=== PATIENT | female | born 1990 | race Hispanic/Latino ===

== ENCOUNTER 2018-02-10 23:21 | Outpatient (CLI) | payer MEDICAID ==
[2018-02-10] MEDS ORDERED: LACTATED RINGERS 1,000 ML IV ONE (23:50)
[2018-02-11 00:06] VITALS: BP 115/76
[2018-02-11 00:47] LABS: Bilirubin,Urine NEG (Negative); Blood,Urine NEG (Negative); Color,Urine Yellow (Yellow); Mucus,Urine FEW /HPF; Protein,Urine <15 mg/dL mg/dL (Negative); Urobilinogen,Urine < 2.0 mg/dL (<2.0)
[2018-02-11] MEDS: BRETHINE SUB-Q SCH ×3 (01:10→02:28)
== END 2018-02-11 03:30 | disposition home or self-care (01) ==
LOC: TRG 23:21
PROVIDERS: ATTEND Obstetrics & Gynecology
DX: O62.9 Abnormality of forces of labor, unspecified (principal); Z87.891 Personal history of nicotine dependence; Z3A.34 34 weeks gestation of pregnancy
CPT/HCPCS: 59025; 81001; 96360; 96369; 96370; J3105; J7120

== ENCOUNTER 2018-03-01 02:01 | Outpatient (CLI) | payer MEDICAID ==
[2018-03-01 02:16] VITALS: BP 110/55
[2018-03-01] MEDS ORDERED: VISTARIL PO PRN (06:18)
== END 2018-03-01 06:55 | disposition home or self-care (01) ==
LOC: TRG 02:01 → LD 02:06 → TRG 06:55
DX: O47.03 False labor before 37 completed weeks of gestation, third trimester (principal); Z3A.36 36 weeks gestation of pregnancy
CPT/HCPCS: 59025

== ENCOUNTER 2018-03-05 22:56 | Inpatient (IN) | payer MEDICAID ==
[2018-03-05] MEDS ORDERED: STADOL IV PRN (23:43)
[2018-03-05] MEDS ORDERED: BRETHINE IVP PRN (23:43)
[2018-03-05] MEDS ORDERED: ePHEDrine SULFATE IV PRN (23:43)
[2018-03-05] MEDS ORDERED: XYLOCAINE 2% INFILTRATI ONE (23:43)
[2018-03-05] MEDS ORDERED: BRETHINE SUB-Q PRN (23:43)
[2018-03-05] MEDS ORDERED: MINERAL OIL PO PRN (23:43)
[2018-03-05] MEDS ORDERED: SUBLIMAZE IV PRN (23:43)
[2018-03-05] MEDS ORDERED: PITOCin/NS 20 UNIT/1000ML DRIP 20 UNITS/1,000 ML BAG IV SCH (23:45)
[2018-03-06 00:18] LABS: Hematocrit 35.4 % (30.3-42.9); Hemoglobin 11.2 gm/dl (10.1-14.3); Mean Corpuscular HGB Conc 32 % (30-34); Mean Corpuscular Volume 78 fl (79-97); Platelet Count 207 K/mm3 (140-440); Red Blood Count 4.55 M/mm3 (3.65-5.03); Red Cell Distribution Width 17.4 % (13.2-15.2)
[2018-03-06 00:22] LABS: Mean Corpuscular Hemoglobin 25 pg (28-32)
[2018-03-06] MEDS: LACTATED RINGERS 1,000 ML IV SCH ×2 (00:24→02:00)
[2018-03-06] MEDS ORDERED: NARCAN 2 MG/2 ML IV PRN (01:01)
[2018-03-06] MEDS ORDERED: ePHEDrine SULFATE IV PRN (01:01)
--- NOTE | 2018-03-06 01:02 | Anesthesia Consultation ---
Anesthesia Consult and Med Hx - Airway Anesthetic Teeth Evaluation: Good ROM Head & Neck: Adequate Mental/Hyoid Distance: Adequate Mallampati Class: Class II Intubation Access Assessment: Good - Pulmonary Exam CTA: Yes - Cardiac Exam Cardiac Exam: RRR - Pre-Operative Health Status ASA Pre-Surgery Classification: ASA2 Proposed Anesthetic Plan: Epidural, Spinal - Pulmonary Hx Asthma: No COPD: No Hx Pneumonia: No - Cardiovascular System Hx Hypertension: No - Central Nervous System Hx Seizures: No Hx Psychiatric Problems: Yes (depression) - Endocrine Hx Renal Disease: No Hx End Stage Renal Disease: No Hx Hypothyroidism: No Hx Hyperthyroidism: No ("nodules found on thyroid") - Hematic Hx Anemia: Yes (hx of transfusion x2) Hx Sickle Cell Disease: No - Other Systems Hx Alcohol Use: Yes (occasional)
[2018-03-06] MEDS ORDERED: fentaNYL-BUPIV 2 MCG/ML-0.125% 200 MCG/100 ML BAG EPIDURAL SCH (02:00)
--- NOTE | 2018-03-06 04:10 | History and Physical Report ---
History of Present Illness Date of examination: 03/06/18 Date of admission: 03/05/18 22:57 History of present illness: 27 yo G3@))! EDC 03/22/18 @ 37.5 weeks with c/o SROM. Exam done, grossly ruptured , clear fluid. Transfer into care at 23 weeks. course complicated by elevated GCT with NL GTT. Prev. 36 weeks delivery and SIDS . PCOS with NL GCT. Inlateral urethra mass @ 35 weeks. referral done. GBS negative. Past History Past Medical History: no pertinent history Past Surgical History: no surgical history AUDIO/VISUAL MANAGER History: other (skene cyst) Social history: no significant social history, - Obstetrical History Expected Date of Delivery: 03/22/18 Actual Gestation: 37 Week(s) 5 Day(s) : 3 Para: 1 Hx # Term Pregnancies: 2 Number of Living Children: 1 Medications and Allergies Allergies Allergy/AdvReac Type Severity Reaction Status Date / Time shellfish derived Allergy Anaphylaxis Verified 02/11/18 00:16 Home Medications Medication Instructions Recorded Confirmed Last Taken Type Vit-Fe Fumar-FA [ 1 tab PO QDAY 02/11/18 03/06/18 02/28/18 09: 00 History Vitamin] Active Meds: Active Medications Butorphanol Tartrate (Stadol) 2 mg IV Q2H PRN PRN Reason: Pain , Severe (7-10) Ephedrine Sulfate (Ephedrine Sulfate) 10 mg IV Q2M PRN PRN Reason: Hypotension Fentanyl (Sublimaze) 100 mcg IV Q2H PRN PRN Reason: Labor Pain Last Admin: 03/06/18 00:24 Dose: 100 mcg Lactated Ringer's (Lactated Ringers) 1,000 mls @ 125 mls/hr IV DIRECT VILMA Last Admin: 03/06/18 02:00 Dose: 125 mls/hr Oxytocin/Sodium Chloride (Pitocin/Ns 20 Unit/1000ml Drip) 20 units in 1,000 mls @ 125 mls/hr IV DIRECT VILMA Fentanyl/Bupivacaine/Sodium Chlor (Fentanyl-Bupiv 2 Mcg/Ml-0.125%) 200 mcg in 100 mls @ 12 mls/hr EPIDURAL TITR VILMA; Protocol Last Admin: 03/06/18 01:49 Dose: 12 mls/hr Mineral Oil (Mineral Oil) 30 ml PO QHS PRN PRN Reason: Constipation Naloxone HCl (Narcan 2 Mg/2 Ml) 0.2 mg IV Q5M PRN PRN Reason: Respiratory sedation Terbutaline Sulfate (Brethine) 0.25 mg SUB-Q ONCE PRN PRN Reason: Hyperstimulation/Hypertonicity Terbutaline Sulfate (Brethine) 0.25 mg IVP ONCE PRN PRN Reason: Hyperstimulation/Hypertonicity Review of Systems All systems: negative Genitourinary: leakage of fluid, contractions, other (Skenes cyst) - Vital Signs Vital signs: Vital Signs Pulse BP Pulse Ox 98 H 115/65 97 03/05/18 23:12 03/05/18 23:12 03/05/18 23:12 Temp Pulse Resp BP Pulse Ox 98.3 F 87 22 95/52 99 03/06/18 00:42 03/06/18 03:55 03/06/18 00:42 03/06/18 03:31 03/06/18 03:55 - Physical Exam Genitourinary (Female): Positive: normal external genitalia, other (skenes cyst) Vagina: Positive: normal moisture - Obstetrical FHR: category 1 Uterine Contraction Monitor Mode: External Uterine Contraction Pattern: Regular Uterine Tone Measurement Phase: Resting Uterine Contraction Intensity: Strong/Firm Results Result Diagrams: 03/05/18 23:50 Abnormal lab results 03/05/18 Range/Units 23:50 MCV 78 L (79-97) fl MCH 25 L (28-32) pg RDW 17.4 H (13.2-15.2) % All other labs normal. Assessment and Plan IUP at term S/P viable female Uretheral Cyst P: PP orders
[2018-03-06] MEDS ORDERED: ZOFRAN IV PRN (04:12)
[2018-03-06] MEDS ORDERED: NORCO 5/325 PO PRN (04:12)
[2018-03-06] MEDS ORDERED: PHENERGAN PO PRN (04:12)
[2018-03-06] MEDS ORDERED: DULCOLAX PR PRN (04:12)
[2018-03-06] MEDS ORDERED: TYLENOL PO PRN (04:12)
[2018-03-06] MEDS ORDERED: MILK OF MAGNESIA PO PRN (04:12)
[2018-03-06] MEDS ORDERED: TUCKS PAD TP PRN (04:12)
[2018-03-06] MEDS ORDERED: LANSINOH TP PRN (04:12)
[2018-03-06] MEDS ORDERED: BENADRYL PO PRN (04:12)
--- NOTE | 2018-03-06 04:17 | Procedure Note ---
OB Delivery Note - Delivery Date of Delivery: 03/06/18 (female @ 0349) Surgeon: COLE SILVESTRE Estimated blood loss: 200cc - Vaginal Delivery presentation: vertex Delivery position: OA Intrapartum events: none Delivery induction: none Delivery monitor: external FHT, external uterine Route of delivery: Delivery placenta: spontaneous Delivery cord: nuchal cord (loose x 1 reduced), 3 umbilical vessels Episiotomy: none Delivery laceration: 1st degree (vaginal, not bleeding, not repaired) Anesthesia: epidural - A at 1 minute: 8 at 5 minutes: 9 Infant Gender: Female ( viable female, cyst remained intact. Bulb suctioned. Placed skin to skin. spont. placenta. Pitocin infusing. Bleeding small. FF 2 below, U, ML. Cord blood collected. Laceration as noted.)
[2018-03-06] MEDS ORDERED: SODIUM CHLORIDE FLUSH SYRINGE 10 ML IV PRN (05:00)
[2018-03-06] MEDS: MOTRIN PO SCH ×3 (05:42→18:30)
[2018-03-06] MEDS: PRENATAL VITAMIN PO SCH (12:42)
[2018-03-06 16:04] LABS: Hematocrit 25.8 % (30.3-42.9); Hemoglobin 8.5 gm/dl (10.1-14.3)
[2018-03-07] MEDS: MOTRIN PO SCH ×3 (00:16→12:20)
[2018-03-07] MEDS ORDERED: BOOSTRIX IM ONE (06:00)
[2018-03-07] MEDS ORDERED: M-M-R II VACCINE SUB-Q ONE ×2 (12:00→15:00)
[2018-03-07] MEDS: PRENATAL VITAMIN PO SCH (12:20)
--- NOTE | 2018-03-07 13:41 | Progress Note ---
Assessment and Plan PPD 1 status post . Patient is doing well. We'll plan for discharge on today. Subjective - Subjective Date of service: 03/07/18 Patient reports: appetite normal, voiding normally, pain well controlled, ambulating normally [place]: doing well Objective - Vital Signs Latest vital signs: Vital Signs Temp Pulse Resp BP Pulse Ox 03/07/18 09:47 98.3 F 18 97/57 03/06/18 16:37 83 99/59 98 03/06/18 14:14 20 Intake and Output 03/06/18 03/07/18 03/07/18 22:59 06:59 14:59 Intake Total 600 720 Output Total 650 Balance -50 720 Intake: Intake, Free Water 600 720 Output: Urine 650 Void 650 Other: Total, Output Amount 650 # Voids Void 1 - Exam Breasts: Present: deferred Cardiovascular: Present: Regular rate, Normal S1, Normal S2 Lungs: Present: Clear to auscultation, Normal air movement Abdomen: Present: normal appearance, soft Extremities: Present: normal Incision: Present: normal, dry, intact - Labs Labs: Abnormal lab results 03/06/18 Range/Units 15:55 Hgb 8.5 L (10.1-14.3) gm/dl Hct 25.8 L D (30.3-42.9) %
--- NOTE | 2018-03-07 13:43 | Discharge Summary ---
Providers - Providers Date of Admission: 03/05/18 22:57 Date of discharge: 03/07/18 Attending physician: EZEQUIEL HERNANDEZ MD Primary care physician: EZEQUIEL HERNANDEZ MD Hospitalization Reason for admission: active labor Delivery: Episiotomy: none Laceration: none complications: none Discharge diagnosis: IUP at term delivered [place] baby: female Condition at discharge: Good Disposition: DC-01 TO HOME OR SELFCARE Plan - Discharge Medications Prescriptions: Ibuprofen [Motrin] 800 mg PO Q8HR PRN #30 tablet PRN Reason: Pain - Provider Discharge Summary Activity: routine, no sex for 6 weeks, no heavy lifting 4 weeks, no strenuous exercise Diet: routine Instructions: routine Additional instructions: [] Smoking cessation referral if applicable(refer to patient education folder for contact #) [] Refer to [facility] Booklet Call your doctor immediately for: * Fever > 100.5 * Heavy vaginal bleeding ( >1 pad per hour) * Severe persistent headache * Shortness of breath * Reddened, hot, painful area to leg or breast * Drainage or odor from incision. * Keep incision clean and dry at all times and follow doctor's instructions regarding bathing/showering - Follow up plan Follow up: EZEQUIEL HERNANDEZ MD [Primary Care Provider] - 6 Weeks
[2018-03-07 16:46] VITALS: BP 104/62
== END 2018-03-07 16:40 | disposition home or self-care (01) | DRG 775 ==
LOC: TRG 22:56 → LD 22:57 → OB 03-06 05:32
PROVIDERS: ADMIT Obstetrics & Gynecology; ATTEND Obstetrics & Gynecology
PROC: 10E0XZZ Delivery of Products of Conception, External Approach (ICD-10-PCS; principal; 2018-03-06)
PROC: 3E0R3BZ Introduction of Anesthetic Agent into Spinal Canal, Percutaneous Approach (ICD-10-PCS; 2018-03-06)
PROC: 00HU33Z Insertion of Infusion Device into Spinal Canal, Percutaneous Approach (ICD-10-PCS; 2018-03-06)
DX: O69.81X0 Labor and delivery complicated by cord around neck, without compression, not applicable or unspecified (principal); N36.8 Other specified disorders of urethra; O75.89 Other specified complications of labor and delivery; O70.0 First degree perineal laceration during delivery; Z3A.37 37 weeks gestation of pregnancy; Z37.0 Single live birth; Z91.013 Allergy to seafood
CPT/HCPCS: 36415; 85014; 85018; 85027; 86592; 86850; 86900; 86901; 90471; 90707; A6250; J2590; J3010; J7120